=== PATIENT | female | born 1985 | race Caucasian/White ===

== ENCOUNTER 2019-05-17 15:59 | Emergency (ER) | payer BC ==
--- NOTE | 2019-05-17 17:13 | ER Document Report ---
ED Medical Screen (RME) - General Chief Complaint: Pelvic Pain Stated Complaint: PELVIC PAIN Time Seen by Provider: 05/17/19 16:56 Primary Care Provider: DOTTIE HUGHES MD [Primary Care Provider] - Follow up as needed - [facility] Notes: 05/17/19 17:10 33-year-old female to the emergency department with complaints of lower abdominal pain and vaginal bleeding that began 1 week ago and has been persistent. She states that she went to see her primary care doctor today. She states that her primary care doctor did an ultrasound on her in the office and was concern for possible torsion. The primary care physician gave the patient Toradol which did bring down the patient's pain some. She denies any vomiting, chills, fevers, nausea, diarrhea. She states the pain is been constant and not getting worse. She states that she usually takes Dabo for control and has done so for over 10 years. She states that she is due for her next upper shot in 1 month. She does admit that she is been urinating more frequently. She states that she has not experienced any dysuria, discharge, retention, feeling as if she has an completely voided. She states that on normal basis she would urinate may be 4 5 times a day and now she is urinating every hour. She denies any other complaints. Medical screening exam was performed on patient. She does have lower abdominal tenderness but no focal tenderness in the right lower quadrant or left lower quadrant. Patient also has left CVA tenderness. Will obtain labs. We will go ahead and order a transvaginal ultrasound with Doppler to evaluate further for torsion. We will have her placed into a bed and further evaluated and managed by main side provider. - Related Data Allergies/Adverse Reactions: No Known Allergies Allergy (Unverified 05/17/19 16:29) Past Medical History - Social History Frequency of alcohol use: None Drug Abuse: None Renal/ Medical History: Denies: Hx Peritoneal Dialysis Physical Exam - Vital signs Vitals: Temp Pulse Resp BP Pulse Ox 98.9 F 89 16 136/83 H 97 05/17/19 16:26 05/17/19 16:26 05/17/19 16:26 05/17/19 16:26 05/17/19 16:26 Course - Vital Signs Vital signs: Temp Pulse Resp BP Pulse Ox 98.9 F 89 16 136/83 H 97 05/17/19 16:26 05/17/19 16:26 05/17/19 16:26 05/17/19 16:26 05/17/19 16:26 Doctor's Discharge - Discharge Referrals: DOTTIE HUGHES MD [Primary Care Provider] - Follow up as needed
[2019-05-17 17:48] LABS: ABSOLUTE BASOPHILS # (AUTO) 0.2 10^3/uL (0.0-0.2); ABSOLUTE EOSINOPHILS # (AUTO) 0.3 10^3/uL (0.0-0.6); ABSOLUTE LYMPHOCYTES (AUTO) 3.6 10^3/uL (0.5-4.7); ABSOLUTE MONOCYTES (AUTO) 0.5 10^3/uL (0.1-1.4); ABSOLUTE NEUT (AUTO) 8.4 10^3/uL (1.7-8.2); BASOPHILS % (AUTO) 1.2 % (0-2); HEMATOCRIT 43.4 % (36.0-47.0); HEMOGLOBIN 14.9 g/dL (12.0-15.5); LYMPHOCYTES % (AUTO) 27.8 % (13-45); MEAN CORPUSCULAR HGB CONC 34.2 g/dL (32.0-36.0); MEAN CORPUSCULAR VOLUME 88 fl (80-97); MONOCYTES % (AUTO) 3.9 % (3-13); PLATELET COUNT 322 10^3/uL (150-450); RED BLOOD COUNT 4.95 10^6/uL (3.72-5.28); RED CELL DISTRIBUTION WIDTH 13.2 % (11.5-14.0); SEGMENTED NEUTROPHILS % (AUTO) 65.1 % (42-78); TOTAL CELLS COUNTED % (AUTO) 100 %; WHITE BLOOD COUNT 12.9 10^3/uL (4.0-10.5)
[2019-05-17] MEDS ORDERED: FENTANYL CITRATE INJ/PF 100 MCG/2 ML AMPUL IV ONE (17:49)
--- NOTE | 2019-05-17 17:50 | ER Document Report ---
ED GI/ - General Mode of Arrival: Ambulatory Information source: Patient - HPI Patient complains to provider of: Pelvic pain, Vaginal discharge. 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 denies: Chills, Diarrhea, Dysuria, Fever, Nausea, Urinary hesitancy Exacerbated by: Denies Relieved by: Denies Similar symptoms previously: No Recently seen / treated by doctor: Yes <FRANKIE RFEDERICK - Last Filed: 05/17/19 20:14> - General Mode of Arrival: Ambulatory Information source: Patient <PRABHA HYDE - Last Filed: 05/17/19 21:06> - General Chief Complaint: Pelvic Pain Stated Complaint: PELVIC PAIN Time Seen by Provider: 05/17/19 16:56 Primary Care Provider: DOTTIE HUGHES MD [NO LOCAL MD] - Follow up as needed Notes: Patient presents complaining of lower abdominal pain for the past week. Patient complains of vaginal bleeding and fatigue with some urinary frequency. Patient denies any fever. Patient saw her primary doctor today and had outpatient labs as well as ultrasound and was told to come here for evaluation for possible ovarian torsion. (FRANKIE FREDERICK) - Related Data Allergies/Adverse Reactions: No Known Allergies Allergy (Unverified 05/17/19 16:29) Past Medical History - General Information source: Patient - Social History Smoking Status: Current Every Day Smoker Frequency of alcohol use: None Drug Abuse: None Occupation: Hospital Family History: Reviewed & Not Pertinent Patient has suicidal ideation: No Patient has homicidal ideation: No Renal/ Medical History: Denies: Hx Peritoneal Dialysis Psychiatric Medical History: Reports: Hx Anxiety, Hx Depression Past Surgical History: Reports: Other - LEEP procedure <FRANKIE FREDERICK - Last Filed: 05/17/19 20:14> Review of Systems - Review of Systems Constitutional: Malaise. denies: Fever EENT: No symptoms reported Cardiovascular: No symptoms reported. denies: Chest pain Respiratory: No symptoms reported. denies: Cough, Short of breath Gastrointestinal: Abdominal pain. denies: Diarrhea, Nausea, Vomiting Genitourinary: Frequency. denies: Dysuria Female Genitourinary: Vaginal bleeding. denies: Vaginal discharge Musculoskeletal: No symptoms reported. denies: Back pain Skin: No symptoms reported Hematologic/Lymphatic: No symptoms reported Neurological/Psychological: No symptoms reported <FRANKIE FREDERICK - Last Filed: 05/17/19 20:14> Physical Exam - General General appearance: Appears well, Alert In distress: None - HEENT Head: Normocephalic Eyes: Normal Conjunctiva: Normal Nasal: Normal Mouth/Lips: Normal Mucous membranes: Normal Neck: Normal, Supple. No: Lymphadenopathy - Respiratory Respiratory status: No respiratory distress Chest status: Nontender Breath sounds: Normal. No: Rales, Rhonchi, Stridor Chest palpation: Normal - Cardiovascular Rhythm: Regular Heart sounds: S1 appreciated, S2 appreciated Murmur: No - Abdominal Inspection: Normal Distension: No distension Bowel sounds: Normal Tenderness: Tender - lower pelvic. No: McBurney's point, Sequeira's sign Organomegaly: No organomegaly - Genitourinary External exam: Normal Speculum exam: Cervix closed, Vaginal discharge Vaginal bleeding: None Bimanuel exam: Adnexal tenderness - right - Back Back: Normal, Nontender - Extremities General upper extremity: Normal inspection, Nontender, Normal ROM General lower extremity: Normal inspection, Nontender, Normal ROM - Neurological Neuro grossly intact: Yes Cognition: Normal Orientation: AAOx4 Talisha Coma Scale Eye Opening: Spontaneous [place] Coma Scale Verbal: Oriented Talisha Coma Scale Motor: Obeys Commands [place] Coma Scale Total: 15 - Psychological Associated symptoms: Normal affect, Normal mood - Skin Skin Temperature: Warm Skin Moisture: Dry Skin Color: Normal <FRANKIE FREDERICK - Last Filed: 05/17/19 20:14> - Vital signs Vitals: Temp Pulse Resp BP Pulse Ox 98.9 F 89 16 136/83 H 97 05/17/19 16:26 05/17/19 16:26 05/17/19 16:26 05/17/19 16:26 05/17/19 16:26 Course - Laboratory Result Diagrams: 05/17/19 17:23 05/17/19 18:32 <FRANKIE FREDERICK - Last Filed: 05/17/19 20:14> - Laboratory Result Diagrams: 05/17/19 17:23 05/17/19 18:32 - Diagnostic Test Radiology reviewed: Image reviewed, Reports reviewed <PRABHA HYDE - Last Filed: 05/17/19 21:06> - Re-evaluation Re-evalutation: 05/17/19 20:17 Bedside report and handoff given to Prabha HENSON (FRANKIE FREDERICK) 05/17/19 20:58 Patient here for lower abdominal pain for a week, questionable history of intermittent torsion outpatient on ultrasound. Labs and ultrasound today were unremarkable other than a mild leukocytosis and small bilateral ovarian cysts without torsion or other acute findings per radiology and reviewed by myself. The patient was signed out to me by LISSA Frederick, at the end of her shift pending her CT abdomen pelvis results for final dispo. Her CT abdomen/pelvis was negative for anything acute per radiology and reviewed by myself. Her vaginal swabs did show she had bacterial vaginosis but were otherwise unremarkable; however, gc/chlam and ucx pending. advised will call with her results once they return. Patient informed of her findings. Her serial abdominal exams remain benign. She is tolerating p.o. well-appearing. vss. will discharge her with Flagyl. This was my full involvement in patient care. Please refer to LISSA Frederick's note for full details of the patient's visit. Patient advised follow- up with [facility] in 1 to 2 days. Return for any worsening symptoms. Patient understands and agrees to plan. All questions answered at discharge. 05/17/19 21:02 (PRABHA HYDE) - Vital Signs Vital signs: Temp Pulse Resp BP Pulse Ox 98.9 F 89 16 136/83 H 97 05/17/19 16:26 05/17/19 16:26 05/17/19 16:26 05/17/19 16:26 05/17/19 16:26 05/17/19 21:03 Temp Pulse Resp BP Pulse Ox 05/17/19 16:26 98.9 F 89 16 136/83 H 97 (PRABHA HYDE) - Laboratory Laboratory results interpreted by me: 05/17/19 05/17/19 17:23 17:23 WBC 12.9 H Absolute Neuts (auto) 8.4 H Urine Blood SMALL H Ur Leukocyte Esterase SMALL H 05/17/19 21:03 Labs- Entire Visit 05/17/19 05/17/19 05/17/19 17:23 17:23 17:23 WBC 12.9 H RBC 4.95 Hgb 14.9 Hct 43.4 MCV 88 MCH 30.0 MCHC 34.2 RDW 13.2 Plt Count 322 Lymph % (Auto) 27.8 Sutton % (Auto) 3.9 Eos % (Auto) 2.0 Baso % (Auto) 1.2 Absolute Neuts (auto) 8.4 H Absolute Lymphs (auto) 3.6 Absolute Monos (auto) 0.5 Absolute Eos (auto) 0.3 Absolute Basos (auto) 0.2 Seg Neutrophils % 65.1 Sodium Cancelled Potassium Cancelled Chloride Cancelled Carbon Dioxide Cancelled Anion Gap Cancelled BUN Cancelled Creatinine Cancelled Est GFR ( Amer) Cancelled Est GFR (Non-Af Amer) Cancelled Est GFR (MDRD) Non-Af Cancelled Glucose Cancelled Calcium Cancelled EGFR Cancelled Urine Color YELLOW Urine Appearance CLEAR Urine pH 5.0 Ur Specific Marion 1.011 Urine Protein NEGATIVE Urine Glucose (UA) NEGATIVE Urine Ketones NEGATIVE Urine Blood SMALL H Urine Nitrite NEGATIVE Urine Bilirubin NEGATIVE Urine Urobilinogen NEGATIVE Ur Leukocyte Esterase SMALL H Urine WBC (Auto) 7 Urine RBC (Auto) 3 Urine Bacteria (Auto) TRACE Squamous Epi Cells Auto 2 Urine Mucus (Auto) OCC Urine Ascorbic Acid NEGATIVE Urine HCG, Qual NEGATIVE Epi Cells (Wet Prep) Bacteria (Wet Prep) Trichomonas (Wet Prep) Vaginal WBC Vaginal RBC Vaginal Yeast 05/17/19 05/17/19 18:32 18:41 WBC RBC Hgb Hct MCV MCH MCHC RDW Plt Count Lymph % (Auto) Sutton % (Auto) Eos % (Auto) Baso % (Auto) Absolute Neuts (auto) Absolute Lymphs (auto) Absolute Monos (auto) Absolute Eos (auto) Absolute Basos (auto) Seg Neutrophils % Sodium 140.3 Potassium 3.7 Chloride 106 Carbon Dioxide 26 Anion Gap 8 BUN 9 Creatinine 0.91 Est GFR ( Amer) > 60 Est GFR (Non-Af Amer) Est GFR (MDRD) Non-Af > 60 Glucose 101 Calcium 10.0 EGFR Urine Color Urine Appearance Urine pH Ur Specific Marion Urine Protein Urine Glucose (UA) Urine Ketones Urine Blood Urine Nitrite Urine Bilirubin Urine Urobilinogen Ur Leukocyte Esterase Urine WBC (Auto) Urine RBC (Auto) Urine Bacteria (Auto) Squamous Epi Cells Auto Urine Mucus (Auto) Urine Ascorbic Acid Urine HCG, Qual Epi Cells (Wet Prep) 3+ EPITHELIALS SEEN Bacteria (Wet Prep) 3+ BACTERIA SEEN Trichomonas (Wet Prep) NO TRICHOMONAS SEEN Vaginal WBC NO WBCS SEEN Vaginal RBC NO RBCS SEEN Vaginal Yeast NO YEAST SEEN (PRABHA HYDE) - Diagnostic Test Radiology results interpreted by me: 05/17/19 21:03 Transvaginal US 05/17/19 17:08 IMPRESSION: Small ovarian cysts are seen bilaterally. Almost certainly benign. No additional imaging is required for these. There is no evidence of ovarian torsion. Abdomen/Pelvis CT 05/17/19 19:01 IMPRESSION: 1. No acute findings. Appendix is normal. (PRABHA HYDE) Discharge <FRANKIE FREDERICK - Last Filed: 05/17/19 20:14> <PRABHA HYDE - Last Filed: 05/17/19 21:06> - Discharge Clinical Impression: Pelvic pain, Bacterial vaginosis Leukocytosis Qualifiers: Leukocytosis type: unspecified Qualified Code(s): D72.829 - Elevated white blood cell count, unspecified Ovarian cyst Qualifiers: Laterality: bilateral Qualified Code(s): N83.201 - Unspecified ovarian cyst, right side; N83.202 - Unspecified ovarian cyst, left side Condition: Good Disposition: HOME, SELF-CARE Instructions: Pelvic Pain ([facility]) Additional Instructions: Follow-up with PCP/obgyn in 1 to 2 days. Return for any worsening symptoms. tylenol or motrin as needed for any pain or fever if not allergic. take the medication as prescribed. drink plenty of fluids. pelvic rest. Prescriptions: Metronidazole [Flagyl 500 mg Tablet] 500 mg PO BID #14 tablet Referrals: DOTTIE HUGHES MD [NO LOCAL MD] - Follow up as needed
[2019-05-17 17:53] LABS: APPEARANCE,URINE CLEAR; BILIRUBIN,URINE NEGATIVE (NEGATIVE); COLOR,URINE YELLOW; GLUCOSE, URINE NEGATIVE (NEGATIVE); KETONES,URINE NEGATIVE (NEGATIVE); LEUKOCYTE ESTERASE,URINE SMALL (NEGATIVE); NITRITE,URINE NEGATIVE (NEGATIVE); PROTEIN,URINE NEGATIVE (NEGATIVE); URINE SPECIFIC GRAVITY 1.011; UROBILINOGEN,URINE NEGATIVE mg/dL (<2.0)
[2019-05-17] MEDS ORDERED: HYDROCODONE/ACETAMINOPHEN 5-325 MG TABLET PO ONE (18:35)
[2019-05-17 18:49] LABS: BACTERIA (WET MOUNT) 3+ BACTERIA SEEN; EPITHELIALS (WET MOUNT) 3+ EPITHELIALS SEEN; RBCS (WET MOUNT) NO RBCS SEEN; T.VAGINALIS (WET MOUNT) NO TRICHOMONAS SEEN; WBCS (WET MOUNT) NO WBCS SEEN; YEAST (WET MOUNT) NO YEAST SEEN
--- NOTE | 2019-05-17 18:50 | RADIOLOGY REPORT (SQ) ---
EXAM DESCRIPTION: U/S NON OB PEL TV W/DOPPLER COMPLETED DATE/TIME: 05/17/2019 6:35 pm REASON FOR STUDY: sent by PCP for torsion eval COMPARISON: None. TECHNIQUE: Dynamic and static grayscale images acquired of the pelvis via transvaginal approach and recorded on PACS. Additional selected color Doppler and spectral images recorded. LIMITATIONS: None. FINDINGS: UTERUS: Contour normal. No mass. ENDOMETRIAL STRIPE: Minimal fluid in the endometrial canal. No endometrial thickening. CERVIX: 1.8 cm. No nabothian cysts. RIGHT OVARY AND DOPPLER: Normal size. No worrisome masses. Normal arterial vascular flow without evid ence for torsion. Cysts are present. The largest measures 1.8 x 1.8 x 2 cm. LEFT OVARY AND DOPPLER: Normal size. No worrisome masses. Normal arterial vascular flow without evide nce for torsion. 1.9 x 1.8 x 1.8 cm cyst. FREE FLUID: None noted. OTHER: No other significant finding. MEASUREMENTS: UTERUS: 6.8 x 3.6 x 2.7 cm. ENDOMETRIAL STRIPE: 3 mm. RIGHT OVARY: 3.2 x 3 x 2.4 cm. LEFT OVARY: 2.9 x 1.9 x 2 cm. IMPRESSION: Small ovarian cysts are seen bilaterally. Almost certainly benign. No additional imagi ng is required for these. There is no evidence of ovarian torsion. TECHNICAL DOCUMENTATION: JOB ID: [id number] / [email or web address]- All Rights Reserved Rev-02/06 Reading location - IP/workstation name: [email or web address]
[2019-05-17 19:11] LABS: ANION GAP 8 (5-19); BLOOD UREA NITROGEN 9 mg/dL (7-20); CARBON DIOXIDE 26 mmol/L (22-30); CHLORIDE 106 mmol/L (98-107); GLUCOSE 101 mg/dL (75-110); POTASSIUM 3.7 mmol/L (3.6-5.0)
--- NOTE | 2019-05-17 20:50 | RADIOLOGY REPORT (SQ) ---
EXAM DESCRIPTION: [facility]: CT ABDOMEN PELVIS WITH IV CONTRAST CLINICAL HISTORY: 33 years Female; RLQ pain TECHNIQUE: CT of the abdomen and pelvis using intravenous contrast. All CT scans at this facility use dose modulation, iterative reconstruction, and/or weight based dosing when appropriate to reduce radiation dose to as low as reasonably achievable. COMPARISON: None. FINDINGS: Abdomen: Liver: Subtle 5 mm hypodensity in segment 6 on image 30 is likely a small cyst. No intrahepatic ductal distention. Gallbladder:Nondistended Pancreas:Within normal limits Spleen:Within normal limits Right kidney:No hydronephrosis. No focal lesion. Left kidney:No hydronephrosis. No focal lesion. Adrenal glands:Within normal limits Vascular structures:Within normal limits Pelvis: Small bowel:No significant distention. Appendix:Within normal limits Colon:No distention or acute pericolonic edema. No free intraperitoneal fluid or air. Bones: No acute bone findings. Bladder: Unremarkable. Uterus is unremarkable. No ovarian enlargement or adjacent edema. IMPRESSION: 1. No acute findings. Appendix is normal.
[2019-05-17 21:09] VITALS: BP 119/59
[2019-05-17 21:54] LABS: CHLAM PCR NOT DETECTED (NOT DETECT)
== END 2019-05-17 21:39 | disposition home or self-care (01) ==
LOC: ER 15:59
DX: N76.0 Acute vaginitis (principal); B96.89 Other specified bacterial agents as the cause of diseases classified elsewhere; D72.829 Elevated white blood cell count, unspecified; N83.202 Unspecified ovarian cyst, left side; R10.2 Pelvic and perineal pain; R35.0 Frequency of micturition; R10.30 Lower abdominal pain, unspecified; R53.83 Other fatigue; R53.81 Other malaise; F17.200 Nicotine dependence, unspecified, uncomplicated
CPT/HCPCS: 36415; 74177; 76830; 80048; 81001; 81025; 85025; 87086; 87088; 87210; 87491; 87591; 93976; 99284